=== PATIENT | female | born 1980 | race Caucasian/White ===

== ENCOUNTER → 2022-04-07 | Outpatient (CLI) | payer BC ==
--- NOTE | 2022-04-07 11:53 | CA ---
Exercise Stress Test Report Name: Fatou Tucker Exam Date: 04/07/2022 11:04 Exam Location: [place] Stress Ht (in): 66 Wt (lb): 225 BSA: 2.10 Ordering Phys: Fitz Morgan MD Referring Phys: gypsy,, Technologist: Randy Gomez Age: 41 Gender: F : 1980 Procedure CPT: Indications: R07.9 CHEST PAIN ICD-10 Codes: Patient History: CHEST PAIN, PALPITATIONS, FORMER SMOKER QUIT 20 YEARS Medications: ATARAX Meds past 24 hrs: Pretest Chest Pain: STRESS TEST Lopez Protocol Exercise Duration (min:sec): 09:[address] Depressions (mm): Angina Score: Stovall Score: Resting HR (bpm): 98 Peak HR (bpm): 155 Resting BP (mmHg): 136 / 71 Peak BP (mmHg): 172 / 66 MPHR: 181 Target HR: 154 % MPHR: 86 METS: 10.3 Total Dose: Peak Dose: Atropine: Double Product: 68510 BP Response: Stress Termination: Stress Symptoms: Stress Summary: ECG ANALYSIS Resting ECG: Stress ECG: CONCLUSIONS Excellent exercise tolerance Normal EKG in response to exercise Dr. Prem Degroot MD (Electronically Signed) Final Date: 07 April 2022 11:52
== END | disposition home or self-care (01) ==
LOC: RADNMMAIN 10:29
PROVIDERS: ATTEND Internal Medicine
DX: R00.2 Palpitations (principal); Z87.891 Personal history of nicotine dependence
CPT/HCPCS: 93017